=== PATIENT | male | born 1975 | race Two or more races ===

== ENCOUNTER 2021-09-06 06:05 | Day surgery (SDC) | payer OTHER ==
[2021-09-06] MEDS ORDERED: NEXIUM 24HR20 M1 PO (08:45)
== END 2021-09-06 10:05 | disposition home or self-care (01) ==
LOC: AMB-ENDOS 06:05
PROVIDERS: ATTEND Surgery
DX: K20.80 Other esophagitis without bleeding (principal); E11.9 Type 2 diabetes mellitus without complications; E66.01 Morbid (severe) obesity due to excess calories